=== PATIENT | female | born 1955 | race Caucasian/White ===

== ENCOUNTER 2019-06-29 15:17 | Emergency (ER) | payer MEDICARE, MEDICAID ==
[~2019-06-29] VITALS: Ht 160 cm; Wt 110.0 kg
[2019-06-29 15:20] VITALS: BP 166/83
== END 2019-06-29 16:19 | disposition home or self-care (01) ==
LOC: ER 15:17
DX: M76.52 Patellar tendinitis, left knee (principal); M17.12 Unilateral primary osteoarthritis, left knee; I25.10 Atherosclerotic heart disease of native coronary artery without angina pectoris; E78.00 Pure hypercholesterolemia, unspecified; I10 Essential (primary) hypertension; E11.9 Type 2 diabetes mellitus without complications; Z88.6 Allergy status to analgesic agent; Z95.5 Presence of coronary angioplasty implant and graft; Z90.49 Acquired absence of other specified parts of digestive tract; Z98.890 Other specified postprocedural states
CPT/HCPCS: 73564; 99283

== ENCOUNTER 2020-10-03 10:41 | Day surgery (SDC) | payer MEDICARE, MEDICAID ==
[2020-10-01 12:40] LABS: BASOPHILS # (AUTO) 0.1 X10'3 (0-0.2); BASOPHILS % (AUTO) 1.2 % (0-1); EOSINOPHILS # (AUTO) 0.2 X10'3 (0-0.9); EOSINOPHILS % (AUTO) 3.3 % (0-6); HEMATOCRIT 40.7 % (35.0-45.0); HEMOGLOBIN 13.4 g/dl (12.0-16.0); LYMPHOCYTES # (AUTO) 1.7 X10'3 (1.1-4.8); LYMPHOCYTES % (AUTO) 35.9 % (21-51); MEAN CORPUSCULAR HEMOGLOBIN 31.5 PG (27.0-31.0); MEAN CORPUSCULAR VOLUME 95.4 FL (78-98); MEAN PLATELET VOLUME 7.9 FL (7.4-10.4); MONOCYTES # (AUTO) 0.5 X10'3 (0-0.9); MONOCYTES % (AUTO) 10.5 % (2-12); NEUTROPHILS # (AUTO) 2.3 X10'3 (1.8-7.7); NEUTROPHILS % (AUTO) 49.1 % (42-75); PLATELET COUNT 243 X10'3 (140-440); RED BLOOD COUNT 4.27 X10'6 (4.20-5.60); RED CELL DISTRIBUTION WIDTH 13.6 % (11.5-14.5); WHITE BLOOD COUNT 4.7 X10'3 (4.5-11.0)
[2020-10-01 12:53] LABS: PARTIAL THROMBOPLASTIN TIME 23 SECONDS (22-32)
[2020-10-01 12:55] LABS: ALANINE AMINOTRANSFERASE 39 U/L (12-78); ALBUMIN 3.9 G/DL (3.4-5.0); ALBUMIN/GLOBULIN RATIO 1.3 (1.1-1.5); ALKALINE PHOSPHATASE 67 IU/L (46-116); ANION GAP 8 (8-16); ASPARTATE AMINO TRANSFERASE 28 U/L (10-37); BILIRUBIN,TOTAL 0.7 MG/DL (0.1-1.0); BLOOD UREA NITROGEN 17 MG/DL (7-18); BUN/CREATININE RATIO 18.3 (6.6-38.0); CALCIUM 9.3 MG/DL (8.5-10.1); CHLORIDE 107 MMOL/L (99-107); CREATININE 0.93 MG/DL (0.40-0.90); GLUCOSE 127 MG/DL (70-104); POTASSIUM 4.5 MMOL/L (3.5-5.1); SODIUM 142 MMOL/L (135-145); eGFR 61 ML/MIN
[~2020-10-03] VITALS: Ht 160 cm; Wt 95.8 kg
[2020-10-03] VITALS (11 sets, daily range): BP systolic 101–165; BP diastolic 58–90
[2020-10-03] MEDS ORDERED: GLIM1TAB6 PO (10:52)
[2020-10-03] MEDS ORDERED: LOSA100T57 PO (10:52)
[2020-10-03] MEDS ORDERED: METF-900 PO (10:52)
[2020-10-03] MEDS ORDERED: ROSU40TA22 PO (10:52)
[2020-10-03] MEDS ORDERED: CHOL500050 PO (10:54)
[2020-10-03] MEDS ORDERED: OMEP20TA5 PO (10:54)
[2020-10-03] MEDS ORDERED: POTA10CA44 PO (10:54)
[2020-10-03] MEDS ORDERED: MAGN500C16 PO (10:54)
[2020-10-03] MEDS ORDERED: insulin Lispro (HumaLOG) vial - multi-dose SQ SCH (11:10)
[2020-10-03] MEDS ORDERED: LORazepam 0.5 MG tablet PO PRN (11:10)
[2020-10-03] MEDS ORDERED: diphenhydrAMINE 25mg capsule PO PRN (11:10)
[2020-10-03] MEDS ORDERED: dextrose ORAL solution 15 GM/59 ML bottle PO PRN ×2 (11:10)
[2020-10-03] MEDS ORDERED: glucagon, human recombinant 1mg kit SUBCUT PRN (11:10)
[2020-10-03] MEDS ORDERED: nitroGLYCERIN 0.4mg SUBLingual tab SL PRN ×2 (11:10→13:25)
[2020-10-03] MEDS ORDERED: dextrose 50%-water 50ml dispensing syringe IV PRN ×2 (11:10)
[2020-10-03] MEDS ORDERED: normal saline 1,000 ML IV SCH (11:10)
[2020-10-03] MEDS ORDERED: midazolam 2 mg/2 ml injection ONE ×2 (12:03→12:38)
[2020-10-03] MEDS ORDERED: LIDOcaine 1% (10mg/ml)w/preservative injection 20ml MDV ONE (12:04)
[2020-10-03] MEDS ORDERED: iohexol 350MG/ML 100ml bottle IV ONE (12:04)
[2020-10-03] MEDS ORDERED: iohexol 350 MG/ML 50ML vial IV ONE (12:04)
[2020-10-03] MEDS ORDERED: fentaNYL/PF 50MCG/1 ML 2ML syringe ONE (12:04)
[2020-10-03] MEDS ORDERED: MESSAGE TO NURSING PO NR (12:08)
[2020-10-03] MEDS ORDERED: metoprolol tartrate 1mg/ml inj IV ONE (12:44)
[2020-10-03] MEDS ORDERED: hydrALAZINE 20mg/ml inj. IV ONE (12:49)
[2020-10-03] MEDS ORDERED: ondansetron/PF 4mg/2ml inj IV PRN (13:20)
[2020-10-03] MEDS ORDERED: proCHLORperazine 10 MG/2 ml inj IV PRN (13:25)
[2020-10-03] MEDS ORDERED: OXAZEpam 15mg capsule PO PRN (13:25)
[2020-10-03] MEDS ORDERED: insulin glargine (Lantus) pen - multi-dose SQ SCH (21:00)
== END 2020-10-03 19:00 | disposition home or self-care (01) ==
LOC: SSTAY O 10:41
PROVIDERS: ATTEND Internal Medicine Cardiovascular Disease
DX: R94.30 Abnormal result of cardiovascular function study, unspecified (principal); I25.10 Atherosclerotic heart disease of native coronary artery without angina pectoris; G47.30 Sleep apnea, unspecified; I10 Essential (primary) hypertension; E11.9 Type 2 diabetes mellitus without complications; Z82.49 Family history of ischemic heart disease and other diseases of the circulatory system; I25.2 Old myocardial infarction; Z79.899 Other long term (current) drug therapy; Z98.890 Other specified postprocedural states
CPT/HCPCS: 36415; 71046; 80053; 82948; 83036; 85025; 85610; 85730; 93005; 93458; 99152; 99153; C1760; C1769; J0360; J1644; J1815; J2001; J2250; J3010; J7030; Q0163; Q9967; A4620; A6258; J3490